=== PATIENT | female | born 1965 | race Caucasian/White ===

== ENCOUNTER 2023-05-06 14:15 | Inpatient (IN) | payer MEDICARE ==
--- NOTE | 2023-05-06 14:48 | ED ---
General Adult HPI <Mitchell Degroot - Last Filed: 05/06/23 21:20> - General Source: patient, police, RN notes reviewed Mode of arrival: ambulatory Limitations: no limitations <Charles Romero - Last Filed: 05/07/23 05:55> - General Stated complaint: Mental Health Eval Time Seen by Provider: 05/06/23 14:17 - History of Present Illness Initial comments: 57-year-old female presents emergency department with police for psychiatric evaluation. Patient was in the local [employer] harassing other patrons, having erratic bizarre behavior. Patient reportedly has history of psychiatric issues she is here from [place]. Patient states she is here for different reasons but no specific reason she does not know what medication she normally takes denies any drug allergies. Denies any physical complaints. Patient states she does have a history of alcohol abuse. (Charles Romero) - Related Data Home Medications Medication Instructions Recorded Confirmed ARIPiprazole [Abilify] 5 mg PO DIRECTED 05/06/23 05/06/23 Topiramate [Topamax] 25 mg PO DIRECTED 05/06/23 05/06/23 buPROPion XL [Wellbutrin XL] 150 mg PO DIRECTED 05/06/23 05/06/23 clonazePAM [KlonoPIN] 1 mg PO DIRECTED 05/06/23 05/06/23 traZODone HCL 150 mg PO DIRECTED 05/06/23 05/06/23 Allergies Allergy/AdvReac Type Severity Reaction Status Date / Time Unable to Assess Allergy Unverified 05/06/23 20:55 Review of Systems ROS Other: All systems not noted in ROS Statement are negative. <Mitchell Degroot - Last Filed: 05/06/23 21:20> ROS Other: All systems not noted in ROS Statement are negative. <Charles Romero - Last Filed: 05/07/23 05:55> ROS Statement: Those systems with pertinent positive or pertinent negative responses have been documented in the HPI. General Exam Limitations: no limitations General appearance: alert, in no apparent distress Head exam: Present: atraumatic, normocephalic, normal inspection Eye exam: Present: normal appearance, PERRL, EOMI. Absent: scleral icterus, conjunctival injection, periorbital swelling ENT exam: Present: normal exam, normal oropharynx, mucous membranes moist Neck exam: Present: normal inspection, full ROM. Absent: tenderness, meningismus, lymphadenopathy Respiratory exam: Present: normal lung sounds bilaterally. Absent: respiratory distress, wheezes, rales, rhonchi, stridor Cardiovascular Exam: Present: regular rate, normal rhythm, normal heart sounds. Absent: systolic murmur, diastolic murmur, rubs, gallop, clicks GI/Abdominal exam: Present: soft, normal bowel sounds. Absent: distended, tenderness, guarding, rebound, rigid Neurological exam: Present: alert Psychiatric exam: Present: flat affect Skin exam: Present: warm, dry, intact, normal color. Absent: rash <Charles Romero - Last Filed: 05/07/23 05:55> Course Vital Signs 05/06/23 05/07/23 15:15 05:12 Temperature 98.3 F Pulse Rate 76 88 Respiratory 18 16 Rate Blood Pressure 161/106 119/74 O2 Sat by Pulse 96 96 Oximetry Medical Decision Making <Mitchell Degroot - Last Filed: 05/06/23 21:20> <Charles Romero - Last Filed: 05/07/23 05:55> - Medical Decision Making Patient was medically cleared by prior physician. Patient was a pending psychiatric evaluation. EPS evaluated patient and determined that he does meet inpatient psychiatric criteria. Petition was completed. I completed the clinical certificate. Diagnosis/symptom? @ -Suicidal behavior Acute, or Chronic, or Acute on Chronic? @ -Acute Uncomplicated (without systemic symptoms) or Complicated (systemic symptoms)? @ -Complicated Side effects of treatment? @ -None Exacerbation, Progression, or Severe Exacerbation] @ -No Poses a threat to life or bodily function? @ -Yes (Mitchell Degroot) Was pt. sent in by a medical professional or institution (, PA, QUANTITATIVE ANALYST, urgent care, hospital, or assisted...) When possible be specific @ -[No] Did you speak to anyone other than the patient for history (EMS, parent, family, police, friend...)? What history was obtained from this source @ -[police providing history of current complaint] Did you review nursing and triage notes (agree or disagree)? Why? @ -[I reviewed and agree with nursing and triage notes] Were old charts reviewed (outside hosp., previous admission, EMS record, old EKG, old radiological studies, urgent care reports/EKG's, assisted records)? Report findings @ -[No old charts were reviewed] Differential Diagnosis (chest pain, altered mental status, abdominal pain women, abdominal pain men, vaginal bleeding, weakness, fever, dyspnea, syncope, headache, dizziness, GI bleed, back pain, seizure, CVA, palpatations, mental health, musculoskeletal)? @ -Differential Mental Health Depression, anxiety, bipolar, psychosis, schizophrenia, borderline personality, situational depression, adjustment disorder, behavioral disorder, brain tumor, malingering, substance abuse, encephalopathy, medication reaction, dementia, hypothyroidism, degenerative neurologic disorder, lupus.... This is not meant to be all-inclusive list EKG interpreted by me (3pts min.). @ -None X-rays interpreted by me (1pt min.). @ -[None done] CT interpreted by me (1pt min.). @ -[None done] U/S interpreted by me (1pt. min.). @ -[None done] What testing was considered but not performed or refused? (CT, X-rays, U/S, labs)? Why? @ -[None] What meds were considered but not given or refused? Why? @ -[None] Did you discuss the management of the patient with other professionals (professionals i.e. , PA, QUANTITATIVE ANALYST, lab, RT, psych nurse, health care social worker, painter decorator, teacher, uniform patrol police officer, manager case management)? Give summary @ -EPS to evaluate the patient Was smoking cessation discussed for >3mins.? @ -[No] Was critical care preformed (if so, how long)? @ -[No] Were there social determinants of health that impacted care today? How? (Homelessness, low income, unemployed, alcoholism, drug addiction, transportation, low edu. Level, literacy, decrease access to med. care, [facility], rehab)? @ -[No] Was there de-escalation of care discussed even if they declined (Discuss DNR or withdrawal of care, Hospice)? DNR status @ -[No] What co-morbidities impacted this encounter? (DM, HTN, Smoking, COPD, CAD, Cancer, CVA, ARF, Chemo, Hep., AIDS, mental health diagnosis, sleep apnea, morbid obesity)? @ -[None] Was patient admitted / discharged? Hospital course, mention meds given and route, prescriptions, significant lab abnormalities, going to OR and other pertinent info. @ -Patient's case signed out to Dr. Degroot (Charles Romero) - Lab Data Lab Results 05/06/23 05/06/23 Range/Units 17:12 22:05 Urine Color Colorless Urine Appearance Clear (Clear) Urine pH 7.0 (5.0-8.0) Ur Specific [place] 1.006 (1.001-1.035) Urine Protein Trace H (Negative) Urine Glucose (UA) Negative (Negative) Urine Ketones Negative (Negative) Urine Blood Trace H (Negative) Urine Nitrite Negative (Negative) Urine Bilirubin Negative (Negative) Urine Urobilinogen <2.0 (<2.0) mg/dL Ur Leukocyte Esterase Negative (Negative) Urine RBC 3 (0-5) /hpf Urine WBC <1 (0-5) /hpf Urine Opiates Screen Not Detected (NotDetected) Ur Oxycodone Screen Not Detected (NotDetected) Urine Methadone Screen Not Detected (NotDetected) Ur Barbiturates Screen Not Detected (NotDetected) U Tricyclic Antidepress Not Detected (NotDetected) Ur Phencyclidine Scrn Not Detected (NotDetected) Ur Amphetamines Screen Not Detected (NotDetected) U Methamphetamines Scrn Not Detected (NotDetected) U Benzodiazepines Scrn Not Detected (NotDetected) Urine Cocaine Screen Not Detected (NotDetected) U Marijuana (THC) Screen Not Detected (NotDetected) SARS-CoV-2 (PCR) Not Detected (Not Detectd) Disposition <Mitchell Degroot - Last Filed: 05/06/23 21:20> <Charles Romero - Last Filed: 05/07/23 05:55> Clinical Impression: Suicidal behavior, Acute psychosis Disposition: TRANSFER TO PSYCH HOSP/UNIT Referrals: Nonstaff,Physician [REFERRING] - 1-2 days
[2023-05-06 17:38] LABS: Appearance,Urine Clear (Clear); Bilirubin,Urine Negative (Negative); Blood,Urine Trace (Negative); Color,Urine Colorless; Glucose,Urine (UA) Negative (Negative); Ketones,Urine Negative (Negative); Leukocyte Esterase,Urine Negative (Negative); Nitrite,Urine Negative (Negative); Protein,Urine Trace (Negative); RBC,Urine 3 /hpf (0-5); Specific Gravity,Urine 1.006 (1.001-1.035); Urobilinogen,Urine <2.0 mg/dL (<2.0); WBC,Urine <1 /hpf (0-5)
[2023-05-06 17:48] LABS: Amphetamine Screen,Urine Not Detected (NotDetected); Barbiturate Screen,Urine Not Detected (NotDetected); Benzodiazepines Screen,Urine Not Detected (NotDetected); Cocaine Screen,Urine Not Detected (NotDetected); Methadone Screen, Urine Not Detected (NotDetected); Opiate Screen,Urine Not Detected (NotDetected); Oxycodone Screen, Urine Not Detected (NotDetected); Phencyclidine Screen,Urine Not Detected (NotDetected); Tricyclic Antidepressant,Urine Not Detected (NotDetected); Urn Cannabinoid Scrn Not Detected (NotDetected)
[2023-05-06] MEDS: LORazepam 2 MG/ML INJ IM STA (21:02)
[2023-05-07] MEDS: ACETAMINOPHEN TAB 500 MG TAB PO STA (02:01)
[2023-05-07 06:46] LABS: Basophils % (A) 1 %; Eosinophils # (A) 0.1 k/uL (0-0.7); Eosinophils % (A) 1 %; HCT 42.1 % (34.0-46.0); HGB 14.1 gm/dL (11.4-16.0); Lymphocytes # (A) 1.4 k/uL (1.0-4.8); Lymphocytes % (A) 24 %; MCH 30.9 pg (25.0-35.0); MCHC 33.5 g/dL (31.0-37.0); MCV 92.1 fL (80.0-100.0); Mean Platelet Volume 6.6; Monocytes # (A) 0.5 k/uL (0-1.0); Monocytes % (A) 8 %; Neutrophils % (A) 65 %; Platelet Count 377 k/uL (150-450); RBC 4.57 m/uL (3.80-5.40); RDW 13.7 % (11.5-15.5); WBC 6.1 k/uL (3.8-10.6)
[2023-05-07 07:00] LABS: ALT 31 U/L (4-34); AST 31 U/L (14-36); African American GFR (CKD) >90 (>60 ml/min/1.73 sqM); Albumin 4.5 g/dL (3.5-5.0); Alkaline Phosphatase 70 U/L (38-126); Anion Gap 10 mmol/L; Blood Urea Nitrogen 14 mg/dL (7-17); Calcium 9.6 mg/dL (8.4-10.2); Carbon Dioxide 20 mmol/L (22-30); Chloride 108 mmol/L (98-107); Glucose 102 mg/dL (74-99); Non-African American GFR(CKD) >90 (>60 ml/min/1.73 sqM); Potassium 3.9 mmol/L (3.5-5.1); Sodium 138 mmol/L (137-145); Total Bilirubin 0.5 mg/dL (0.2-1.3); Total Protein 7.2 g/dL (6.3-8.2)
[2023-05-08] MEDS ORDERED: LORazepam 2 MG/ML INJ IM PRN (13:33)
[2023-05-08] MEDS ORDERED: HALOPERIDOL LACTATE 5 MG/ML 1 ML VIAL IM PRN (13:33)
[2023-05-08] MEDS ORDERED: MAG HYDROX/AL HYDROX/SIMETH 30 ML CUP PO PRN (13:33)
[2023-05-08] MEDS: LORazepam 1 MG TAB PO PRN (16:13)
[2023-05-08] MEDS: haloperidoL 5 MG TAB PO PRN (16:13)
--- NOTE | 2023-05-08 17:15 | P.MDCNMH ---
<Thiago Cheatham - Last Filed: 05/08/23 17:07> History of Present Illness H&P Date: 05/08/23 Chief Complaint: Hypertension and tachycardia History of Presenting Illness: Patient is a 57-year-old female with a past medical history of psychiatric disorder. She is currently admitted to the inpatient mental health unit for psychosis. We were called for medical H&P and concerns of hypertension and tachycardia with blood pressure 157/104 and heart rate 124. Upon evaluation of patient in room 305 bed 2 with RN supervising at bedside, patient appeared very paranoid and anxious. She was reporting that father Callum was standing guard at her door and that he can turn back into her at any time and cause demise to anyone that touched her. Patient initially refusing assessment and refusing to answer questions. Patient did allow for a brief physical exam allowing auscultation of her heart rate and lung sounds only prior to pushing stethoscope away and refusing any other treatment or care. Patient fidgety and anxious. She was just given 2 mg of Ativan and 5 mg of Haldol, but remained quite anxious and exhibiting paranoid and delusional behaviors. Patient talking about spirits and their conversion into humans that we will attack others. Review of systems: Unable to complete full ROS secondary to patient's current psychosis and refusal to answer questions. Physical exam: Vital signs reviewed. General: Patient with mild distress secondary to psychosis. Disheveled appearance. Derm: Skin warm and dry, normal coloration for ethnicity. Head: Atraumatic, normocephalic and symmetric. Eyes: Pupils appear to be equal. No scleral icterus noted. Mouth: no obvious lip lesions, mucus membranes appear moist Cardiovascular: Tachycardic rate and regular rhythm upon auscultation. Normal S1S2, no murmur Lungs: Respirations even, regular, and unlabored on room air. Lungs CTA bilaterally, no rhonchi, no rales, no wheezing, and no accessory muscle usage. Abdominal: Patient refused abdominal assessment. Ext: Patient moving all extremities appeared to be equally, refusing to follow commands or allow full assessment. No gross muscle atrophy, no edema, no contractures Neuro: Speech clear, face symmetrical. Psych: Patient awake and alert, refused to answer questions. Patient very anxious appearing with paranoid behaviors expressing delusional ideas. Suspect visual hallucinations. Assessment and Plan of Care: Hypertension Tachycardia, suspect sinus tachycardia as tachycardic rate and rhythm upon auscultation -Hypertension and tachycardia suspected to be secondary to acute psychosis. Patient very anxious and fidgety exhibiting paranoid behaviors and expressing delusional ideations. -Recommend continuation of psychiatric medication regimen for acute psychosis. -Discussed with RN, repeat blood pressure 1 hour after administration of Haldol and Ativan. -Order placed for EKG. TSH already ordered by psychiatry. -Do not recommend starting antihypertensive medications at this time, hypertension and tachycardia is believed to be secondary to psychosis. Acute psychosis with severe paranoia and delusional ideations -Management per primary admitting psychiatric team. Data reviewed: -Admission labs were reviewed. CBC unremarkable. BMP revealing mild hyperchl oremia with chloride of 108 and bicarb of 20 and anion gap of 10. Glucose normal findings at 102. Urinalysis was negative for infection positive for trace protein and trace blood. Urine hCG negative. Urine drug screen negative. COVID PCR negative. -Vital signs reviewed. Blood pressure at time of medication administration 168/101, heart rate 136, respiratory rate 18, temp 96% on room air. Thank you for allowing us to participate in the care of this pleasant patient. Do not hesitate to contact us with questions. Someone can be reached from the [facility] hospitalist group all hours of the day at [phone] or via [employer]. Patient was seen independently by Nurse Practitioner. This document was prepared using [employer] dictation software. Please allow for errors in complaint supervisor while rare they do occur. Past Medical History Past Medical History: No Reported History History of Any Multi-Drug Resistant Organisms: None Reported Past Surgical History: No Surgical Hx Reported Past Psychological History: No Psychological Hx Reported Smoking Status: Unknown if ever smoked Past Alcohol Use History: Occasional Past Drug Use History: None Reported Medications and Allergies Home Medications Medication Instructions Recorded Confirmed Type ARIPiprazole [Abilify] 5 mg PO DIRECTED 05/06/23 05/06/23 History Topiramate [Topamax] 25 mg PO DIRECTED 05/06/23 05/06/23 History buPROPion XL [Wellbutrin XL] 150 mg PO DIRECTED 05/06/23 05/06/23 History clonazePAM [KlonoPIN] 1 mg PO DIRECTED 05/06/23 05/06/23 History traZODone HCL 150 mg PO DIRECTED 05/06/23 05/06/23 History Allergies Allergy/AdvReac Type Severity Reaction Status Date / Time Unable to Assess Allergy Unverified 05/06/23 20:55 Physical Exam Vitals: Vital Signs Temp Pulse Pulse Resp BP BP Pulse Ox 05/08/23 16:20 136 H 18 168/101 96 05/08/23 14:24 98.2 F 124 H 18 157/104 97 05/08/23 14:07 98.1 F 78 18 138/76 98 05/07/23 19:33 97.6 F 73 16 154/95 96 Intake and Output 05/08/23 05/08/23 05/08/23 06:59 14:59 22:59 Other: Weight 56.444 kg Cranial Nerve Examination - Cranial Nerves Cranial Nerve II- Optic: Intact Cranial Nerve III- Oculomotor: Intact Cranial Nerve IV- Trochlear: Intact Cranial Nerve V- Trigeminal: Intact Cranial Nerve - Abducens: Intact Cranial Nerve VII- Facial: Intact Cranial Nerve VIII- Auditory: Intact Cranial Nerve IX- Glossopharyngeal: Intact Cranial Nerve X- Vagus: Intact Cranial Nerve XI- Accessory: Intact Cranial Nerve XII- Hypoglossal: Intact Results CBC & Chem 7: 05/07/23 06:37 05/07/23 06:37 <Zoila Mcdonough - Last Filed: 05/08/23 18:16> History of Present Illness Thiago Cehatham NP rendered care for this patient independently, reviewed the findings and plan as documented in the note above. I did not physically speak with or examine the patient on this date. Physical Exam Osteopathic Statement: *. No significant issues noted on an osteopathic structural exam other than those noted in the History and Physical/Consult. Vitals: Vital Signs Temp Pulse Pulse Resp BP BP Pulse Ox 05/08/23 17:23 103 H 144/94 05/08/23 16:20 136 H 18 168/101 96 05/08/23 14:24 98.2 F 124 H 18 157/104 97 05/08/23 14:07 98.1 F 78 18 138/76 98 05/07/23 19:33 97.6 F 73 16 154/95 96 Intake and Output 05/08/23 05/08/23 05/08/23 06:59 14:59 22:59 Other: Weight 56.444 kg Results CBC & Chem 7: 05/07/23 06:37 05/07/23 06:37
[2023-05-08] MEDS: TOPIRAMATE 25 MG TAB PO SCH (21:32)
[2023-05-08] MEDS: ARIPiprazole 10 MG TAB PO SCH (21:32)
[2023-05-08] MEDS: clonazePAM 1 MG TAB PO SCH (21:32)
[2023-05-09] MEDS: NICOTINE 14MG/24HR PATCH TRANSDERM SCH (08:44)
[2023-05-09 09:21] LABS: LDL Cholesterol,Calculated 124.3 mg/dL (0.0-131.0); VLDL Calculation 19.04 mg/dL (5.00-40.00)
[2023-05-09] MEDS ORDERED: LORazepam 2 MG/ML INJ IM PRN (12:46)
--- NOTE | 2023-05-09 14:09 | P.HP ---
Psychiatric H&P - . H&P Date: 05/09/23 History & Physical: Allergies Allergy/AdvReac Type Severity Reaction Status Date / Time gluten Allergy Rash/Hives Verified 05/09/23 08:46 Vital Signs Temp 98.2 F 05/08/23 14:24 Pulse 103 H 05/08/23 17:23 Resp 18 05/08/23 16:20 BP 144/94 05/08/23 17:23 Pulse Ox 96 05/08/23 16:20 FiO2 Intake & Output 05/08/23 05/09/23 05/09/23 18:59 06:59 18:59 Weight 56.444 kg Laboratory Last Values WBC 6.1 k/uL (3.8-10.6) 05/07/23 06:37 RBC 4.57 m/uL (3.80-5.40) 05/07/23 06:37 Hgb 14.1 gm/dL (11.4-16.0) 05/07/23 06:37 Hct 42.1 % (34.0-46.0) 05/07/23 06:37 MCV 92.1 fL (80.0-100.0) 05/07/23 06:37 MCH 30.9 pg (25.0-35.0) 05/07/23 06:37 MCHC 33.5 g/dL (31.0-37.0) 05/07/23 06:37 RDW 13.7 % (11.5-15.5) 05/07/23 06:37 Plt Count 377 k/uL (150-450) 05/07/23 06:37 MPV 6.6 05/07/23 06:37 Neutrophils % 65 % 05/07/23 06:37 Lymphocytes % 24 % 05/07/23 06:37 Monocytes % 8 % 05/07/23 06:37 Eosinophils % 1 % 05/07/23 06:37 Basophils % 1 % 05/07/23 06:37 Neutrophils # 4.0 k/uL (1.3-7.7) 05/07/23 06:37 Lymphocytes # 1.4 k/uL (1.0-4.8) 05/07/23 06:37 Monocytes # 0.5 k/uL (0-1.0) 05/07/23 06:37 Eosinophils # 0.1 k/uL (0-0.7) 05/07/23 06:37 Basophils # 0.0 k/uL (0-0.2) 05/07/23 06:37 Sodium 138 mmol/L (137-145) 05/07/23 06:37 Potassium 3.9 mmol/L (3.5-5.1) 05/07/23 06:37 Chloride 108 mmol/L (98-107) H 05/07/23 06:37 Carbon Dioxide 20 mmol/L (22-30) L 05/07/23 06:37 Anion Gap 10 mmol/L 05/07/23 06:37 BUN 14 mg/dL (7-17) 05/07/23 06:37 Creatinine 0.56 mg/dL (0.52-1.04) 05/07/23 06:37 Est GFR (CKD-EPI)AfAm >90 (>60 ml/min/1.73 sqM) 05/07/23 06:37 Est GFR (CKD-EPI)NonAf >90 (>60 ml/min/1.73 sqM) 05/07/23 06:37 Glucose 102 mg/dL (74-99) H 05/07/23 06:37 Calcium 9.6 mg/dL (8.4-10.2) 05/07/23 06:37 Total Bilirubin 0.5 mg/dL (0.2-1.3) 05/07/23 06:37 AST 31 U/L (14-36) 05/07/23 06:37 ALT 31 U/L (4-34) 05/07/23 06:37 Alkaline Phosphatase 70 U/L (38-126) 05/07/23 06:37 Total Protein 7.2 g/dL (6.3-8.2) 05/07/23 06:37 Albumin 4.5 g/dL (3.5-5.0) 05/07/23 06:37 TSH 6.220 mIU/L (0.465-4.680) H 05/07/23 06:37 Urine Color Colorless 05/06/23 17:12 Urine Appearance Clear (Clear) 05/06/23 17:12 Urine pH 7.0 (5.0-8.0) 05/06/23 17:12 Ur Specific [place] 1.006 (1.001-1.035) 05/06/23 17:12 Urine Protein Trace (Negative) H 05/06/23 17:12 Urine Glucose (UA) Negative (Negative) 05/06/23 17:12 Urine Ketones Negative (Negative) 05/06/23 17:12 Urine Blood Trace (Negative) H 05/06/23 17:12 Urine Nitrite Negative (Negative) 05/06/23 17:12 Urine Bilirubin Negative (Negative) 05/06/23 17:12 Urine Urobilinogen <2.0 mg/dL (<2.0) 05/06/23 17:12 Ur Leukocyte Esterase Negative (Negative) 05/06/23 17:12 Urine RBC 3 /hpf (0-5) 05/06/23 17:12 Urine WBC <1 /hpf (0-5) 05/06/23 17:12 Urine HCG, Qual Not Detected (Not Detectd) 05/06/23 17:12 Urine Opiates Screen Not Detected (NotDetected) 05/06/23 17:12 Ur Oxycodone Screen Not Detected (NotDetected) 05/06/23 17:12 Urine Methadone Screen Not Detected (NotDetected) 05/06/23 17:12 Ur Barbiturates Screen Not Detected (NotDetected) 05/06/23 17:12 U Tricyclic Antidepress Not Detected (NotDetected) 05/06/23 17:12 Ur Phencyclidine Scrn Not Detected (NotDetected) 05/06/23 17:12 Ur Amphetamines Screen Not Detected (NotDetected) 05/06/23 17:12 U Methamphetamines Scrn Not Detected (NotDetected) 05/06/23 17:12 U Benzodiazepines Scrn Not Detected (NotDetected) 05/06/23 17:12 Urine Cocaine Screen Not Detected (NotDetected) 05/06/23 17:12 U Marijuana (THC) Screen Not Detected (NotDetected) 05/06/23 17:12 SARS-CoV-2 (PCR) Not Detected (Not Detectd) 05/06/23 22:05 05/09/23 09:08 IDENTIFYING DATA: Patient is a 57-year-old female, lives in [place], in a condo. Has 3 children. Unemployed HPI: Patient presented to the hospital on 05/06, petitioned by the police. As per EPS note, "1:1 attempted. Pt delusional in the hallway yelling for the universe to walk her down the hallway. In the ER there is a baby crying and she's trying to get to the baby saying it's hers. Pt unable to complete assessment r/t delusional thougth content. pt petitioned by police and petition states she asked them to shoot her. No history of care in EMR." As per ED note, "57-year-old female presents emergency department with police for psychiatric evaluation. Patient was in the local [employer] harassing other patrons, having erratic bizarre behavior. Patient reportedly has history of psychiatric issues she is here from [place]. Patient states she is here for different reasons but no specific reason she does not know what medication she normally takes denies any drug allergies. Denies any physical complaints. Patient states she does have a history of alcohol abuse." Today, she states that she feels unsafe with her last name, and that's why she feels she is here. States she was going toward [place], but bypassed that accidentally. States she was over tired, and ended up in a [employer], and said something mean to a patron there. States that she is overcome by the society that does satanic practices and tenriism. Religiously preoccupied. Patient states that she doesn't feel safe in this facility. Patient denies any suicidal or homicidal ideations intent or plan. At this time patient denies any auditory or visual hallucinations. Patient denies any flight of ideas racing thoughts and increased in goal directed behavior. Patient's UDS negative. PAST PSYCHIATRIC HISTORY: poor historian. States she was hospitalized in [place], at [facility], but does not know when. PMH:As per ER note ALLERGIES: as per EMR CHEMICAL DEPENDENCY HISTORY: as per HPI FAMILY PSYCHIATRIC/SUBSTANCE USE HISTORY: denies SOCIAL HISTORY: Patient was born and raised in [place], [place], , has 3 children, Some college. Denies legal history. Unemployed currently. 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 MENTAL STATUS EXAM: General Appearance: Patient appears to be stated age is alert, directable, and attempts to cooperate at first, grows irritable during interview. Patient appe ars to have fair hygiene and grooming. Behavior: Patient is seated without any agitated behavior. Does grow agitated during interview, argumentative. Speech: Patient's speech is fluent and nonpressured. Mood/Affect: Patient reports their mood is fine, affect is congruent and constricted. Suicidality/Homicidality: Patient denies having any homicidal ideation intent or plan. Denies any suicidal ideations intent or plan Perceptions: Patient denies any visual hallucinations and denies any auditory hallucinations Though content/process: There is evidence of delusional thought content patient speaking of tenriism and not being safe Memory and concentration: AOX3, grossly intact for the purposes of this session. Can spell "WORLD" backwards Judgment and insight: poor/impulsive STRENGTHS/WEAKNESSES: strength is that patient is resilient. Weakness is that patient has poor judgment and is impulsive INTELLECT: average IMPRESSIONS: bipolar disorder, manic episode with psychotic features PLAN: -Patient is admitted under involuntary status to MHU for stabilization of psychiatric symptoms and safety. Patient has not signed adult voluntary form or medication consent and is placed in patient's chart. A second certification was completed and along with petition will be filed for court. -Medications : Will start patient on Abilify 5mg qhs for psychosis/mood stabilization trazadone 50mg qhs for sleep decrease klonopin to 0.5mg qhs for anxiety/sleep -Ativan and Haldol PRN for agitation/aggression -Patient was informed of the risks, benefits and side effects of the medication and patient verbally consented to taking the medications. -Internal Medicine consult to perform medical evaluation and physical. -NRT - non smoker -SW on board for discharge planning. Encourage patient to participate in groups to work on coping skills. Will await deferral and court date. 05/09/23 14:08
[2023-05-09] MEDS: ARIPiprazole 5 MG TAB PO SCH ×2 (14:11→22:07)
[2023-05-09] MEDS: ACETAMINOPHEN TAB 325 MG TAB PO PRN (14:20)
[2023-05-09] MEDS: traZODone HCL 50 MG TAB PO SCH (22:06)
[2023-05-09] MEDS: clonazePAM 0.5 MG TAB PO SCH (22:07)
[2023-05-10] MEDS: FAMOTIDINE 20 MG TAB PO SCH (09:08)
[2023-05-10] MEDS: LORazepam 1 MG TAB PO PRN (09:11)
--- NOTE | 2023-05-10 12:08 | P.PN ---
Progress Note - Text Progress Note Date: 05/10/23 Interval History: Patient was seen in her room and was directable and agreeable to speak with wr iter at the bedside. Patient is ruminating on not feeling safe here, and that there needs to be more people like her at this facility, and not just 2 guys. States her mood is not very good, and that she would like legal representation as quickly as possible. Patient seems a little irritated during the interview, getting upset at magnetic tape typewriter operator during the interview for asking questions during the interview. States she feels rushed. Patient is sleeping at night, and eating meals in the dining room. Continues to be fairly paranoid, mainly keeping himself and believes that she does not feel safe on the unit "with other men". Mostly isolating to her room. At this time patient denies any suicidal or homical ideations, intent or plan. Patient denies any auditory, visual hallucinations and denies any paranoia or delusions. Patient denies any side effects from the medications and has not been compliant with meds. MENTAL STATUS EXAM: General Appearance: Patient appears to be stated age is alert, directable, and attempts to cooperate at first, grows irritable during interview. Patient appears to have fair hygiene and grooming. Behavior: Patient is seated without any agitated behavior. Does grow agitated during interview, argumentative. Fairly paranoid. Speech: Patient's speech is fluent and nonpressured. Mood/Affect: Patient reports their mood is scared, affect is congruent and constricted. Suicidality/Homicidality: Patient denies having any homicidal ideation intent or plan. Denies any suicidal ideations intent or plan Perceptions: Patient denies any visual hallucinations and denies any auditory hallucinations Though content/process: Endorsing paranoia, goal oriented. Rambling. Memory and concentration: AOX3, grossly intact for the purposes of this session. Judgment and insight: poor/impulsive IMPRESSIONS: bipolar disorder, manic episode with psychotic features PLAN: -Patient is admitted under involuntary status to [facility] for stabilization of psychiatric symptoms and safety. Patient has not signed adult voluntary form or medication consent and is placed in patient's chart. -Medications :Abilify 5mg qhs for psychosis/mood stabilization trazadone 50mg qhs for sleep, klonopin 0.5mg qhs for anxiety/sleep Patient not compliant with all her medication -Ativan and Haldol PRN for agitation/aggression -SW on board for discharge planning. Encourage patient to participate in groups to work on coping skills. Will await deferral and court date.
[2023-05-11] MEDS: IBUPROFEN 600 MG TAB PO PRN (08:29)
[2023-05-11] MEDS: SUMAtriptan succinate 50 MG TAB PO PRN (11:46)
--- NOTE | 2023-05-12 10:23 | P.PN ---
Progress Note - Text Progress Note Date: 05/11/23 Interval History: Patient was seen in her room and was directable and agreeable to speak with wr iter at the bedside. Patient continues ruminating on not feeling safe here, and it is making her feel a little anxious. States her mood is not very good, and that she would like her court date sooner than later. Patient complains of headache, technical writer and editor spoke with patient about medication, imitrex, patient agreeable to try it. Patient is sleeping at night, and eating meals in the dining room. Continues to be fairly paranoid, mainly keeping himself and believes that she does not feel safe on the unit . Patient states that she does not want to try different medications, because [employer] has worked for her in the past. Patient has also spoke with patient rights, Massimo a couple times, and claims to have written a letter to the COMMERCIAL RETOUCHER of the hospital, due to not feeling safe.. Mostly isolating to her room. At this time patient denies any suicidal or homicidal ideations, intent or plan. Patient denies any auditory, visual hallucinations and denies any paranoia or delusions. Patient denies any side effects from the medications and has been compliant with meds. MENTAL STATUS EXAM: General Appearance: Patient appears to be stated age is alert, directable, and attempts to cooperate at first, grows irritable during interview. Patient appears to have fair hygiene and grooming. Behavior: Patient is seated without any agitated behavior. Fairly paranoid. Speech: Patient's speech is fluent and nonpressured. Mood/Affect: Patient reports their mood is anxious, affect is congruent and constricted. Suicidality/Homicidality: Patient denies having any homicidal ideation intent or plan. Denies any suicidal ideations intent or plan Perceptions: Patient denies any visual hallucinations and denies any auditory hallucinations Though content/process: Endorsing paranoia, goal oriented. Memory and concentration: AOX3, grossly intact for the purposes of this session. Judgment and insight: poor/impulsive IMPRESSIONS: bipolar disorder, manic episode with psychotic features PLAN: -Patient is admitted under involuntary status to [facility] for stabilization of psychiatric symptoms and safety. Patient has not signed adult voluntary form or medication consent and is placed in patient's chart. -Medications :Abilify 5mg qhs for psychosis/mood stabilization trazadone 50mg qhs for sleep, klonopin 0.5mg qhs for anxiety/sleep add Imitrex 50mg bid prn -Ativan and Haldol PRN for agitation/aggression -SW on board for discharge planning. Encourage patient to participate in groups to work on coping skills. Will await deferral and court date.
--- NOTE | 2023-05-12 10:59 | P.PN ---
Progress Note - Text Progress Note Date: 05/12/23 Interval History: Patient was seen in her room and was directable and agreeable to speak with wr iter at the bedside. Patient states she is feeling tired today. Patient is sleeping at night, and eating meals in the dining room. Patient states that she does not want to try different medications, because [employer] has worked for her in the past, however, she is having side effects from the Abilify, and field underwriter explained to her that we need to change up her medication, so she does experience the side effects. Patient agreeable, however, hesitant, stating "nothing works". Mostly isolating to her room, but has gone to a few groups. Appetite is good. At this time patient denies any suicidal or homicidal ideations, intent or plan. Patient denies any auditory, visual hallucinations and denies any paranoia or delusions. Patient denies any side effects from the medications and has been compliant with meds. MENTAL STATUS EXAM: General Appearance: Patient appears to be stated age is alert, directable, and attempts to cooperate at first, grows irritable during interview. Patient appears to have fair hygiene and grooming. Behavior: Patient is seated without any agitated behavior. Fairly paranoid. mildly improving Speech: Patient's speech is fluent and nonpressured. Mood/Affect: Patient reports their mood is tired, affect is congruent and constricted. Suicidality/Homicidality: Patient denies having any homicidal ideation intent or plan. Denies any suicidal ideations intent or plan Perceptions: Patient denies any visual hallucinations and denies any auditory hallucinations Though content/process: Endorsing paranoia, goal oriented. mildly improving Memory and concentration: AOX3, grossly intact for the purposes of this session. Judgment and insight: poor/impulsive, mildly improving IMPRESSIONS: bipolar disorder, manic episode with psychotic features PLAN: -Patient is admitted under involuntary status to [facility] for stabilization of psychiatric symptoms and safety. Patient has not signed adult voluntary form or medication consent and is placed in patient's chart. -Medications :d/c Abilify due to intolerance and s/e, add Zyprexa 5mg qhs psychosis/mood stabilization change trazadone 50mg qhs prn for sleep, will taper off klonopin, decrease Klonopin 0.25 mg for two days, then d/c, Imitrex 50mg bid prn, Consider adding mood stabilizer lithium vs depakote. -Ativan and Haldol PRN for agitation/aggression -SW on board for discharge planning. Encourage patient to participate in groups to work on coping skills. Patient did not defer, court date scheduled for 05/16.
[2023-05-12] MEDS: clonazePAM 0.5 MG TAB PO SCH (20:27)
[2023-05-12] MEDS: OLANZapine 5 MG TAB PO SCH (20:27)
--- NOTE | 2023-05-13 19:06 | P.PN ---
Progress Note - Text Progress Note Date: 05/13/23 Interval history: Patient was seen at the nursing station and was directable and agreeable to speak with fiction and nonfiction writer prose. She reports good sleep and appetite, but appears internally preoccupied and worried about "circumstances of life". At this time patient denies any suicidal or homicidal ideation, intent or plan. She denies any auditory or visual hallucinations when asked directly, but claims she hears a chime about once a day that seems "EVIL". I explained this hospital does play a chime over the loudspeaker when a baby is born, however she continues to insist the chime sounds "EVIL and not like a baby is born", and becomes annoyed. She appears paranoid and mistrusting. Patient denies any side effects from the medications and has been compliant with meds. She has received Ativan 1 mg po x 3 yesterday and Ativan 1 mg po x 2 so far today. We discussed the Ativan will be decreased, and she is being tapered off the Klonopin. Mental status exam: General Appearance: Patient appears to be stated age, dressd in clean casual attire, hair brushed. Behavior: No agitated behavior, but appears suspicious, becomes annoyed when discussed the "evil chime". Speech: Patient's speech is fluent and non-pressured. Mood/Affect: Mood is worried/anxious, affect is congruent and constricted. Suicidality/Homicidality: Patient denies having any suicidal or homicidal ideation intent or plan. Perceptions: Patient denies any auditory or visual hallucinations, but claims to hear an "evil chime". Though content/process: There is no evidence paranoid delusional thought content and thought process is linear. Memory and concentration: AOX3, grossly intact for the purposes of this session Judgment and insight: improving mildly Assessment/Plan: Continue with current diagnosis. Patient continues to meet criteria for inpatient psychiatric admission for symptom stabilization and safety. Increase Zyprexa to 7.5 mg QHS for psychosis/mood. Decrease Ativan from 1 mg po TID PRN to 0.5 mg po BID PRN for anxiety. Continue to taper off Klonopin as ordered. Monitor for medication compliance and for any psychotropic medication side effects. Will continue to monitor ongoing response to treatment. Encouraged participation in milieu.
[2023-05-13] MEDS: LORazepam 0.5 MG TAB PO SCH (20:34)
[2023-05-13] MEDS: OLANZapine 7.5 MG TAB PO SCH (20:34)
[2023-05-13] MEDS: traZODone HCL 50 MG TAB PO PRN (20:35)
[2023-05-14 05:07] VITALS: RESP 16
--- NOTE | 2023-05-14 12:32 | P.CNNES ---
History of Present Illness Consult date: 05/14/23 Requesting physician: Osmel Bowman Reason for Consult: migraine and med ineffective History of Present Illness: This is a 57-year-old woman with history of migraines, alcohol use with paranoia. She is in the inpatient psychiatry for bipolar disorder with manic episodes with psychotic features.. Neurology is consulted for migraine was ineffective medication. He stated that she has a migraine for years at least 14 years and she feels its over bilateral hemisphere of the brain to be in the frontal and that she feels it radiates to the bilateral temporal occipital neck and she feels is constant and throughout the day. She denies any photophobia or phonophobia. Feels her headache is mostly 10 out of 10. Currently eats 4 out of 10. She cannot describe her headache. Denies any nausea vomiting. She feels the as to be left alone with these headaches. He stated that the she is on Topamax 25 mg twice a day and does not feel any drastic improvement. As she tried Imitrex and does not feel that Imitrex is helping that. The fear is that the somewhat helped in the past. She tried Depakote the in the past and feels her symptoms are worse. According to her she never followed up with a neurologist as an outpatient. She had MRI of the brain at a different hospital and does not recall and does not recall the results. He states she is under a lot of circumstances life and was tearful about that and drinks alcohol as a result. He denies any focal deficit, any visual disturbance. Does not feel her headache is worse Review of Systems Review of system: The 12 point system was reviewed and apparent positive and negative per HPI. Past Medical History Past Medical History: Thyroid Disorder History of Any Multi-Drug Resistant Organisms: None Reported Past Surgical History: No Surgical Hx Reported Past Anesthesia/Blood Transfusion Reactions: No Reported Reaction Past Psychological History: No Psychological Hx Reported Smoking Status: Never smoker, Unknown if ever smoked Past Alcohol Use History: Occasional Past Drug Use History: None Reported Medications and Allergies Home Medications Medication Instructions Recorded Confirmed Type ARIPiprazole [Abilify] 5 mg PO DIRECTED 05/06/23 05/06/23 History Topiramate [Topamax] 25 mg PO DIRECTED 05/06/23 05/06/23 History buPROPion XL [Wellbutrin XL] 150 mg PO DIRECTED 05/06/23 05/06/23 History clonazePAM [KlonoPIN] 1 mg PO DIRECTED 05/06/23 05/06/23 History traZODone HCL 150 mg PO DIRECTED 05/06/23 05/06/23 History Allergies Allergy/AdvReac Type Severity Reaction Status Date / Time gluten Allergy Rash/Hives Verified 05/09/23 08:46 Physical Examination - Vital Signs Vital Signs: Vital Signs Temp Pulse Resp BP Pulse Ox 05/14/23 04:47 98.0 F 105 H 16 106/65 98 05/13/23 14:56 20 119/58 GENERAL: The patient is lying in bed and is not in acute distress. NEUROLOGICAL: Higher mental function: The patient is awake, alert, oriented to self, place and time. Patient is following commands. No aphasia and no neglect. Cranial nerves: The pupils are round, equal and reactive to light and accommodation. Visual eng are full to confrontation throughout. Extraocular movement is intact no nystagmus is noted. Facial sensation is normal to touch throughout. The facial strength is normal throughout. Hearing is normal bilaterally to hand rub. Tongue is midline and moved [id number] without any difficulty. No dysarthria is noted. Shoulder shrug is normal bilaterally. Motor: The strength is 5 over 5 throughout. Normal tone and bulk. Cerebellum: Normal finger to nose bilaterally. Sensation: Sensation is normal to touch throughout. Plantars are downgoing bilaterally. Results - Laboratory Findings CBC and BMP: 05/07/23 06:37 05/07/23 06:37 Abnormal Lab Findings: Abnormal Labs 05/06/23 05/07/23 05/07/23 17:12 06:37 06:37 Chloride 108 H Carbon Dioxide 20 L Glucose 102 H Cholesterol 203.00 H TSH 6.220 H Urine Protein Trace H Urine Blood Trace H Assessment and Plan Assessment: This is a 57-year-old woman who was in the inpatient psychiatry for bipolar disorder, manic with psychotic feature. Neurologist consulted for history of migraine and effective medication Cephalgia History of migraine Bipolar disorder, manic disorder with scattered features Alcohol use Plan: We'll go up on the Topamax from 25 mg twice a day to 50 mg twice a day. The patient was notified of the side effects of Topamax Currently the patient is on Imitrex 50 mg 1 tablet twice a day when necessary but does not feel any improvement. He feels Imitrex does not help in the past. I stopped Imitrex and I started her on Fioricet since she felt there is some improvement in the past. Patient was notified to attempt to notify us of the the MRI she had 8 months ago so we can obtain the the result from the outside hospital. Patient was educated on alcohol cessation Upon discharge recommend the patient to follow-up with a neurologist and to get her eye examined by Criminal Research Specialist or Ophthamologist. We'll defer the rest of the management to the psychiatry team The plan discussed with the patient and her nurses at bedside Thank you for the consultation Dr. Lopez will resume neurology service tomorrow A.M. Time with Patient: Greater than 30
[2023-05-14] MEDS: BUTALB/APAP/CAFF 50-325-40MG TAB PO PRN (12:44)
[2023-05-14] MEDS: TOPIRAMATE 25 MG TAB PO SCH (20:58)
--- NOTE | 2023-05-14 21:08 | P.PN ---
Progress Note - Text Progress Note Date: 05/14/23 Interval history: Patient was seen resting in her bed and was directable and agreeable to speak with financial writer in her room. She is recorded as sleeping only 3 hours last night, despite receiving Haldol 5 mg po x 1 last night at around midnight, and today she reports feeling very tired. She continues to be guarded and appears paranoid, especially when discussing medications. We discussed adding a mood stabilizer such as Depakote and patient declined. We discussed increasing the Zyprexa from 7.5 mg QHS to 10 mg QHS for mood stabilization and psychosis and she declined this as well. At this time patient denies any suicidal or homicidal ideation, intent or plan. She denies any auditory or visual hallucinations. She does not mention the "evil chime" today. Patient denies any side effects from the medications and has been compliant with meds, however she reports concern ab out future weight gain with Zyprexa and would like to discuss this with Dr. Erickson tomorrow. Yesterday, patient had approached me in the evening complaining about migraine headaches so we ordered a neurology consult. The neurologist saw her this morning and increased her Topamax from 25 mg BID to 50 mg BID, started fioricet PRN, and discontinued her Imitrex per her preference. Mental status exam: General Appearance: Patient appears to be stated age, dressed in clean casual attire, hair brushed. Behavior: No agitated behavior, but appears suspicious and guarded. Speech: Patient's speech is fluent and non-pressured. Mood/Affect: Mood is worried/anxious, affect is congruent and constricted. Suicidality/Homicidality: Patient denies having any suicidal or homicidal ideation intent or plan. Perceptions: Patient denies any auditory or visual hallucinations. Though content/process: There is evidence of paranoid delusional thought content and thought process appears ruminative. Memory and concentration: AOX3, grossly intact for the purposes of this session Judgment and insight: Limited Assessment/Plan: Continue with current diagnosis. Patient continues to meet criteria for inpatient psychiatric admission for symptom stabilization and safety. Continue Zyprexa 7.5 mg QHS for psychosis/mood. She declines increase in Zyprexa dose and declines a trial of mood stabilizer. Continue to taper off Klonopin as ordered, last dose scheduled for tonight. Continue other meds as ordered. Appreciate neurology recs for migraine headaches. Follow-up outpatient with neurology or PCP. Monitor for medication compliance and for any psychotropic medication side effects. Will continue to monitor ongoing response to treatment. Encouraged participation in milieu.
--- NOTE | 2023-05-15 11:55 | P.PN ---
Subjective Progress Note Date: 05/15/23 Principal diagnosis: Bipolar disorder mixed type Rule out schizoaffective disorder Patient Name: Alina Saab Date of : 1965 Patient Status: Inpatient Attending Provider: Radhames Erickson Date: 07/04 Interval history: Patient was seen resting in her bed and was directable and agreeable to speak with marine underwriter in her room. Patient states that she is thinking was clearer now is concerned about weight g ain from Zyprexa She is open to trying another medication and after discussing several different antidepressants and antipsychotics and mood stabilizers agreed to take the Trileptal She is also agreeable that she can continue the Zyprexa for about 6 months and then can start tapering gradually to avoid any decompensation . She denies any auditory or visual hallucinations. Patient denies any side effects from the medications and has been compliant with meds, however she reports concern about future weight gain with Zyprexa . . The neurologist saw her this morning and increased her Topamax from 25 mg BID to 50 mg BID, started fioricet PRN, and discontinued her Imitrex per her preference. Mental status exam: General Appearance: Patient appears to be stated age, dressed in clean casual attire, hair brushed. Behavior: No agitated behavior, but appears suspicious and guarded. Speech: Patient's speech is fluent and non-pressured. Mood/Affect: Mood is worried/anxious, affect is congruent and constricted. Suicidality/Homicidality: Patient denies having any suicidal or homicidal tony ation intent or plan. Perceptions: Patient denies any auditory or visual hallucinations. Though content/process: There is evidence of paranoid delusional thought content and thought process appears ruminative. Memory and concentration: AOX3, grossly intact for the purposes of this session Judgment and insight: Limited Assessment/Plan: Continue with current diagnosis. Patient continues to meet criteria for inpatient psychiatric admission for symptom stabilization and safety. Continue Zyprexa 7.5 mg QHS for psychosis/mood. She declines increase in Zyprexa dose Has agreed to try the Trileptal 300 mg twice a day to start within titrated to response Continue to taper off Klonopin as ordered, last dose scheduled for tonight. Continue other meds as ordered. Appreciate neurology recs for migraine headaches. Follow-up outpatient with neurology or PCP. Monitor for medication compliance and for any psychotropic medication side effects. Will continue to monitor ongoing response to treatment. Encouraged participation in milieu. Jesse Hollingsworth M.D. Objective - Vital Signs Vital signs: Vital Signs Temp 98.1 F 05/15/23 06:00 Pulse 109 H 05/15/23 06:00 Resp 16 05/15/23 06:00 BP 139/65 05/15/23 06:00 Pulse Ox 98 05/15/23 06:00 FiO2 Intake & Output 05/14/23 05/15/23 05/15/23 18:59 06:59 18:59 Weight 58.6 kg - Labs CBC & Chem 7: 05/07/23 06:37 05/07/23 06:37
[2023-05-15] MEDS: BUTALB/APAP/CAFF 50-325-40MG TAB PO SCH (15:49)
[2023-05-15] MEDS: OXcarbazepine 300 MG TAB PO SCH (20:08)
[2023-05-16] MEDS: MAG HYDROX/AL HYDROX/SIMETH 355 ML BOTTLE PO PRN (08:56)
--- NOTE | 2023-05-16 11:35 | P.PN ---
Subjective Progress Note Date: 05/16/23 Principal diagnosis: Bipolar disorder mixed type Rule out schizoaffective disorder Patient Name: Alina Saab Date of : 1965 Patient Status: Inpatient Attending Provider: Radhames Erickson Date: 05/16/23 Interval history: Patient was seen resting in her bed and was directable and agreeable to speak with comic writer in her room. Patient states that she is thinking was clearer now is concerned about weight ga in from Zyprexa however she reports concern about future weight gain with Zyprexa Patient asked appropriate questions about the new medication Trileptal that was added Patient is open to eventually taper off from the Zyprexa and seemed to be relieved that the weight gain from Zyprexa is not also in an gradual that can also be modifiable with diet control as well as some exercise as well as that the Topamax also would be helpful Patient also requested for some artificial tears increase in her trazodone dosage and reports that she has had chronic problems with insomnia . . The neurologist saw her this morning and increased her Topamax from 25 mg BID to 50 mg BID, started fioricet PRN, and discontinued her Imitrex per her preference. Mental status exam: General Appearance: Patient appears to be stated age, dressed in clean casual attire, hair brushed. Behavior: No agitated behavior, but appears suspicious and guarded. Speech: Patient's speech is fluent and non-pressured. Mood/Affect: Mood is worried/anxious, affect is congruent and constricted. Suicidality/Homicidality: Patient denies having any suicidal or homicidal ideation intent or plan. Perceptions: Patient denies any auditory or visual hallucinations. Though content/process: There is evidence of paranoid delusional thought content and thought process appears ruminative. Memory and concentration: AOX3, grossly intact for the purposes of this session Judgment and insight: Limited Assessment/Plan: Continue with current diagnosis. Patient continues to meet criteria for inpatient psychiatric admission for symptom stabilization and safety. Continue Zyprexa 7.5 mg QHS for psychosis/mood. She declines increase in Zyprexa dose Has agreed to try the Trileptal 300 mg twice a day to start within titrated to response Continue to taper off Klonopin as ordered, last dose scheduled for tonight. Have increased the trazodone 200 mg at bedtime Continue other meds as ordered. Appreciate neurology recs for migraine headaches. Follow-up outpatient with neurology or PCP. Monitor for medication compliance and for any psychotropic medication side effects. Will continue to monitor ongoing response to treatment. Encouraged participation in milieu. Jesse Hollingsworth M.D. Objective - Vital Signs Vital signs: Vital Signs Temp 98.1 F 05/16/23 01:42 Pulse 88 05/16/23 01:42 Resp 16 05/16/23 01:42 BP 116/78 05/16/23 01:42 Pulse Ox 99 05/16/23 01:42 FiO2 - Labs CBC & Chem 7: 05/07/23 06:37 05/07/23 06:37
[2023-05-16] MEDS: ARTIFICIAL TEARS-HYPROMELLOSE DROPS 15 ML BTL BOTH EYES PRN (12:09)
--- NOTE | 2023-05-16 14:02 | P.PN ---
Subjective Progress Note Date: 05/16/23 Patient was initially seen by Dr. Alexy Peter. Please refer to his note for details. Patient is a 57-year-old female consulted for migraine management. Dr. Peter has increased her dose of Topamax from 25 mg twice daily up to 50 mg twice daily and started her on Fioricet. Patient states she has chronic neck pain, and the cracks when she rotates her neck. She also has chronic headaches and migraines. Patient believes higher dose of Topamax is helping slightly as well as Fioricet. She is on higher dose of trazodone, which will help with her sleep. Patient denies any side effect of medication. Patient states that she had some good bowel movement today and feeling better. Denies diarrhea. Patient states that she has chronic neck pain since "forever". Patient also has bipolar disorder. She believes that everything that she is getting has started to help. Patient states that she does not have a neurologist since she had undergone disability. She just feels frustrated. Patient states that she had MRI of the "whole body" in [facility], in March 2022. She does not know the results. She had another MRI of the "whole body" done in [place] in [facility] but that was long time ago. Objective - Vital Signs Vital signs: Vital Signs Temp 98.1 F 05/16/23 01:42 Pulse 88 05/16/23 01:42 Resp 16 05/16/23 01:42 BP 116/78 05/16/23 01:42 Pulse Ox 99 05/16/23 01:42 FiO2 - Exam Mental status, speech and language functions are normal. Cranial nerves are normal. Visual eng are full. Face is symmetric. Muscle strength is no drift and the strength is normal. No ataxia. Sensations normal. Gait normal. - Labs CBC & Chem 7: 05/07/23 06:37 05/07/23 06:37 Assessment and Plan Assessment: This is a 57-year-old woman who was in the inpatient psychiatry for bipolar disorder, manic with psychotic feature. Neurologist consulted for history of migraine and effective medication Cephalgia History of migraine Bipolar disorder, manic disorder with scattered features Alcohol use Chronic neck pain. Plan: Patient's headache have improved since her dose of Topamax was increased from 25 mg twice daily to 50 mg twice daily. Patient will be continued on the same dose. Continue Fioricet as needed. The patient was notified of the side effects of Topamax Patient has previously failed Imitrex in the past. Recommend patient follow-up with neurologist outpatient for management of her chronic migraines. She had MRIs done in the past, which can be obtained by her neurologist outpatient. She may be a candidate for newer CGRP agents to help with chronic migraines. This can be given only outpatient. Upon discharge recommend the patient to follow-up with a neurologist and to get her eye examined by [employer] [employer] or Ophthamologist. We'll defer the rest of the management to the psychiatry team Neurologically clear. Please reconsult if any other concerns.
[2023-05-16] MEDS: traZODone HCL 100 MG TAB PO SCH (20:14)
[2023-05-16] MEDS: MAGNESIUM HYDROXIDE 2,400 MG/30 ML CUP PO PRN (21:24)
--- NOTE | 2023-05-17 08:53 | P.PN ---
Subjective Progress Note Date: 05/17/23 Principal diagnosis: Bipolar disorder mixed type Rule out schizoaffective disorder Patient Name: Alina Saab Date of : 1965 Patient Status: Inpatient Attending Provider: Radhames Erickson Date: 05/17/23 Interval history: The patient was seen in her room where she was folding her clothes Patient reports that she finally slept well and that the trazodone was very helpful Patient was much more interactive She said that she is feeling more like herself She stated that she eventually still wants to go back to [facility] where all her family is and her apartment and that she does not intend to stay in this area for long Patient asked appropriate questions about follow-up in the [facility] Mental status exam: General Appearance: Patient appears to be stated age, dressed in clean casual attire, hair brushed. Behavior: No agitated behavior, but appears suspicious and guarded. Speech: Patient's speech is fluent and non-pressured. Mood/Affect: Mood is worried/anxious, affect is congruent and constricted. Suicidality/Homicidality: Patient denies having any suicidal or homicidal ideation intent or plan. Perceptions: Patient denies any auditory or visual hallucinations. Though content/process: There is evidence of paranoid delusional thought content and thought process appears ruminative. Memory and concentration: AOX3, grossly intact for the purposes of this session Judgment and insight: Limited Assessment/Plan: Continue with current diagnosis. Patient continues to meet criteria for inpatient psychiatric admission for symptom stabilization and safety. Continue Zyprexa 7.5 mg QHS for psychosis/mood. She declines increase in Zyprexa dose Has agreed to try the Trileptal 300 mg twice a day to start within titrated to response Continue to taper off Klonopin as ordered, last dose scheduled for tonight. Have increased the trazodone to 100 mg at bedtime Continue other meds as ordered. Appreciate neurology recs for migraine headaches. Follow-up outpatient with neurology or PCP. Monitor for medication compliance and for any psychotropic medication side effects. Will continue to monitor ongoing response to treatment. Encouraged participation in milieu. Sleep pattern seems to have improved with the addition of the trazodone Continue current care and support Jesse Hollingsworth M.D. Objective - Vital Signs Vital signs: Vital Signs Temp 97 F L 05/17/23 05:55 Pulse 75 05/17/23 05:55 Resp 16 05/17/23 05:55 BP 110/58 05/17/23 05:55 Pulse Ox 99 05/17/23 05:55 FiO2 - Labs CBC & Chem 7: 05/07/23 06:37 05/07/23 06:37
[2023-05-17] MEDS: LORazepam 0.5 MG TAB PO PRN (08:56)
[2023-05-17] MEDS: LOPERAMIDE 2 MG CAP PO PRN (10:04)
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
[2023-05-18 10:47] VITALS: BMI 22.1
[2023-05-18] MEDS ORDERED: hydrOXYzine HCL 50 MG/ML 1 ML VIAL IM PRN (11:27)
[2023-05-18] MEDS: BISMUTH SUBSALICYLATE 4,192 MG/240 ML BOTTLE PO PRN (14:54)
[2023-05-18] MEDS: hydrOXYzine pamoate 25 MG CAP PO PRN (19:10)
[2023-05-19] MEDS: BUTALB/APAP/CAFF 50-325-40MG TAB PO PRN (01:15)
[2023-05-19 07:12] VITALS: BP 110/61; PULSE 76; TEMP 98
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
== END 2023-05-19 11:50 | disposition home or self-care (01) | DRG 885 ==
LOC: EC 14:15 → 3MHU 05-08 13:30
PROVIDERS: ADMIT Psychiatry & Neurology Psychiatry; ATTEND Psychiatry & Neurology Psychiatry
DX: F31.64 Bipolar disorder, current episode mixed, severe, with psychotic features (principal); Z88.8 Allergy status to other drugs, medicaments and biological substances; Z20.822 Contact with and (suspected) exposure to COVID-19; G43.909 Migraine, unspecified, not intractable, without status migrainosus; G89.29 Other chronic pain; K59.00 Constipation, unspecified; Z79.899 Other long term (current) drug therapy; Z91.148 Patient's other noncompliance with medication regimen for other reason
CPT/HCPCS: 36415; 80053; 80061; 80306; 81001; 81025; 82075; 83036; 84439; 84443; 85025; 87635; 93005; 96372; 99285